=== PATIENT | male | born 1955 | race African-American/Black ===

== ENCOUNTER 2021-12-10 03:20 | Inpatient (IN) | payer SELFPAY ==
[~2021-12-10] VITALS: Ht 182.9 cm; Wt 80.7 kg
--- NOTE | 2021-12-10 03:33 | PHYS DOC ---
Past Medical History Smoking Status: Former Smoker Alcohol Use: Occasionally Drug Use: None General Adult HPI: HPI: Patient is a 66 year old male who is brought in by his for report of progressively worsening right upper quadrant abdominal pain, with occasional nausea and vomiting, symptoms have been progressing for the last few weeks. The pain was initially postprandial but now the pain is constant. The pain does radiate to his right flank, he does describe some pleuritic lower right chest pain. He denies dyspnea. He denies fevers or chills. He reports nausea, no vomiting. He denies constipation or diarrhea. He denies urinary symptoms. No previous similar symptoms. No previous abdominal surgeries. No lower extremity pain or swelling. No cough or hemoptysis. He does not have primary care physician, has not seen a PCP in many years. He does not take any medications routinely. Review of Systems: Review of Systems: Constitutional: Denies fever or chills. [] HENT: Denies nasal congestion or sore throat. [] Respiratory: Denies cough or shortness of breath. [] Cardiovascular: Pleuritic right lower chest pain. Denies chest pressure. De nies peripheral edema. Denies palpitations or syncope GI: Right upper quadrant abdominal pain, nausea. No bowel habit changes. : Denies urinary symptoms Musculoskeletal: Denies back pain or joint pain. [] Integument: Denies rash or itching. Neurologic: Denies headache, focal weakness or sensory changes. [] Psychiatric: Denies depression or anxiety. [] Heart Score: C/O Chest Pain: No Risk Factors: Risk Factors: DM, Current or recent (<one month) smoker, HTN, HLP, family history of CAD, obesity. Risk Scores: Score 0 - 3: 2.5% MACE over next 6 weeks - Discharge Home Score 4 - 6: 20.3% MACE over next 6 weeks - Admit for Clinical Observation Score 7 - 10: 72.7% MACE over next 6 weeks - Early Invasive Strategies Physical Exam: PE: Constitutional: Well developed, well nourished, no acute distress, non-toxic appearance. [] HENT: Normocephalic, atraumatic, mucous membranes are moist Eyes: Conjunctiva normal, no discharge. Sclera anicteric Neck: Normal range of motion, no tenderness, supple, no stridor. No JVD, trachea midline Cardiovascular:Heart rate regular rhythm, +2 radial and +2 posterior tibial pulses bilaterally Lungs & Thorax: Bilateral breath sounds clear to auscultation, no rales, rhonchi or wheezes. Equal chest rise. Mild tachypnea. No retractions. Abdomen: Abdomen is soft, nondistended, exquisite tenderness to palpation in the right upper quadrant, positive Ocampo's. No palpable masses organomegaly. No CVA tenderness. No flank abdominal ecchymoses. No lower abdominal tenderness. Skin: Warm, dry, no erythema, no rash. No jaundice. Back: No tenderness, no CVA tenderness. [] Extremities: No tenderness, no cyanosis, no clubbing, ROM intact, no edema. No calf tenderness. Neurologic: Alert and oriented X 3, normal motor function, normal sensory function, no focal deficits noted. [] Psychologic: Affect normal, judgement normal, mood normal. He is pleasant and cooperative. EKG: EKG: EKG is interpreted at 0354 Rhythm is sinus tachycardia Rate is 107 bpm Finley is left No STEMI Radiology/Procedures: Radiology/Procedures: IMAGING REPORT Signed PATIENT: DEANNE CALLWAAY ACCOUNT: [id number] : 1955 LOCATION: ER AGE: 66 SEX: M EXAM STATUS: PRE ER ORD. PHYSICIAN: OWEN OLIVERA DO REASON: RUQ pain PROCEDURE: ABDOMEN LTD US ABDOMEN LIMITED History: Right upper quadrant pain Comparison: None. Technique: Sonographic examination of the right upper quadrant of the abdomen. Findings: Pancreas: Poorly visualized due to overlying bowel gas. Liver: The liver measures 15.6 cm. Liver echotexture is mildly echogenic compatible steatosis. There is a 1.1 cm focal hyperechoic avascular lesion compatible with hemangioma. Hepatopetal flow in the portal vein. Gallbladder: Wall thickening measuring 7 mm with pericholecystic fluid, echogenic stones and sludge. Positive sonographic Ocampo sign. Bile ducts: The common duct measures 7 mm. Right kidney: 10.4 cm length. No mass or hydronephrosis. Aorta/IVC: Visualized portions are unremarkable. Other: No ascites. Impression: 1. Findings compatible with acute cholecystitis. 2. Common bile duct at the upper limits of normal, 7 mm. No choledocholithiasis visualized. Electronically signed by: Zaheer Epperson MD (12/10/2021 4:22 AM) [facility] DICTATED and SIGNED BY: ZAHEER EPPERSON MD DATE: 12/10/21 0418 IMAGING REPORT Signed PATIENT: DEANNE CALLAWAY ACCOUNT: [id number] : 1955 LOCATION: ER AGE: 66 SEX: M EXAM STATUS: REG ER ORD. PHYSICIAN: OWEN OLIVERA DO REASON: upper abd pain PROCEDURE: PORTABLE CHEST 1V XR CHEST 1V History: Upper abdominal pain. Comparison: None. Technique: AP radiograph of the chest. Findings: The lungs are adequately and symmetrically inflated. No airspace consolidation, pleural effusion or pneumothorax. The cardiomediastinal silhouette and pulmonary vasculature are within normal limits. No acute osseous abnormality. Soft tissues are unremarkable. Impression: 1. No acute cardiopulmonary process. Electronically signed by: Zaheer Epperson MD (12/10/2021 5:24 AM) [facility] DICTATED and SIGNED BY: ZAHEER EPPERSON MD DATE: 12/10/21 0523 IMAGING REPORT Signed PATIENT: DEANNE CALLAWAY ACCOUNT: [id number] : 1955 LOCATION: ER AGE: 66 SEX: M EXAM STATUS: REG ER ORD. PHYSICIAN: OWEN OLIVERA DO REASON: pleuritic chest pain, elevated d dimer, OMNI 350 100 ML IV PROCEDURE: CT ANGIOGRAPHY CHEST CTA CHEST History: Pleuritic chest pain, elevated d-dimer. Rule out PE. Comparison: None. Technique: CTA of the pulmonary arteries with intravenous contrast. 3-D postprocessing was performed. Findings: Pulmonary arteries: No pulmonary embolism. Aorta and great vessels: No aneurysm or dissection of the aortic arch or thoracic aorta. Thyroid: No significant abnormalities. Mediastinum and clarice: No mediastinal masses or adenopathy is seen. Esophagus: The visualized esophagus is normal. Heart: The heart is normal in size. There is no pericardial effusion. Airways, Lungs, Pleura: The airways are patent. There is moderate emphysematous change with a large right apical bleb measuring 8.6 cm diameter. Dependent consolidation in the right greater than left lower lobe. No effusion or pneumothorax. Upper abdomen: Mild stranding adjacent to the gallbladder fossa. Osseous structures and soft tissues: Within normal limits for age. Impression: 1. No pulmonary embolism. 2. Dependent consolidation/atelectasis in the right greater than left lungs. 3. Moderate emphysema with large right apical bleb measuring 8.6 cm diameter. 4. Findings compatible with acute cholecystitis but appreciated by comparison CT. ------ Exposure: One or more of the following individualized dose reduction techniques were utilized for this examination: 1. Automated exposure control 2. Adjustment of the mA and/or kV according to patient size 3. Use of iterative reconstruction technique. Electronically signed by: Zaheer Epperson MD (12/10/2021 5:41 AM) [facility] DICTATED and SIGNED BY: ZAHEER EPPERSON MD DATE: 12/10/21 0534 Course & Med Decision Making: Course & Med Decision Making Pertinent Labs and Imaging studies reviewed. (See chart for details) The patient is given IV fluids, IV morphine. He is kept n.p.o. IV Zosyn given empirically for treatment of cholecystitis. His tachycardia is resolved at this time. D-dimer is markedly elevated, and I suspect his pleuritic pain is related to acute cholecystitis. CT angiogram is ordered nonetheless. I have explained the findings, differential diagnosis and plan of care with him. I recommended hospitalization, he understands and is comfortable with the plan of care. He is accepted for admission by Dr. Helm. Dr. Hernandez also aware of the admission and consult. Shirley Disclaimer: Shirley Disclaimer: This electronic medical record was generated, in whole or in part, using a voice recognition dictation system. Departure Departure Impression: Primary Impression: Acute cholecystitis Disposition: ADMITTED INPATIENT Admitting Physician: TOM (Dr. Helm) Condition: STABLE JAROD,OWEN Cabrera DO Dec 10, 2021 03:33
[2021-12-10] MEDS ORDERED: IV NORMAL SALINE 1000ML BAG 1,000 ML IV ONE (03:45)
[2021-12-10] MEDS ORDERED: MORPHINE SULFATE 4 MG/ML INJ. IVP ONE (03:45)
[2021-12-10 04:06] LABS: BASO # 0.1 x10^3/uL (0.0-0.2); BASO % 0 % (0-3); EOS % 0 % (0-3); HEMATOCRIT 46.3 % (39.0-53.0); HEMOGLOBIN 15.5 g/dL (13.0-17.5); LYMPH # 1.2 x10^3/uL (1.0-4.8); LYMPH % 4 % (24-48); MEAN CORPUSCULAR HEMOGLOBIN 29 pg (25-35); MEAN CORPUSCULAR HGB CONC 33 g/dL (31-37); MEAN CORPUSCULAR VOLUME 87 fL (79-100); MONO # 2.8 x10^3/uL (0.0-1.1); MONO % 9 % (0-9); NEUT # 28.4 x10^3/uL (1.8-7.7); NEUT % 87 % (31-73); PLATELET COUNT 269 x10^3/uL (140-400); RED BLOOD COUNT 5.32 x10^6/uL (4.30-5.70); RED CELL DISTRIBUTION WIDTH 14.5 % (11.5-14.5); WHITE BLOOD COUNT 32.6 x10^3/uL (4.0-11.0)
[2021-12-10 04:15] LABS: CALCIUM 8.9 mg/dL (8.5-10.1); GFR 75.2; POTASSIUM 4.5 mmol/L (3.5-5.1)
[2021-12-10 04:21] LABS: ALBUMIN 3.8 g/dL (3.4-5.0); ALBUMIN/GLOBULIN RATIO 0.8 (1.0-1.7); MAGNESIUM 2.4 mg/dL (1.8-2.4); TOTAL BILIRUBIN 1.3 mg/dL (0.2-1.0); TOTAL PROTEIN 8.5 g/dL (6.4-8.2)
--- NOTE | 2021-12-10 04:24 | RAD ---
US ABDOMEN LIMITED History: Right upper quadrant pain Comparison: None. Technique: Sonographic examination of the right upper quadrant of the abdomen. Findings: Pancreas: Poorly visualized due to overlying bowel gas. Liver: The liver measures 15.6 cm. Liver echotexture is mildly echogenic compatible steatosis. There is a 1.1 cm focal hyperechoic avascular lesion compatible with hemangioma. Hepatopetal flow in the p ortal vein. Gallbladder: Wall thickening measuring 7 mm with pericholecystic fluid, echogenic stones and sludge. Positive sonographic Ocampo sign. Bile ducts: The common duct measures 7 mm. Right kidney: 10.4 cm length. No mass or hydronephrosis. Aorta/IVC: Visualized portions are unremarkable. Other: No ascites. Impression: 1. Findings compatible with acute cholecystitis. 2. Common bile duct at the upper limits of normal, 7 mm. No choledocholithiasis visualized. Electronically signed by: Zaheer Thakkar MD (12/10/2021 4:22 AM) [facility]
[2021-12-10] MEDS ORDERED: IOHEXOL 350 MG/ML 100 ML VIAL. IV ONE (04:45)
[2021-12-10] MEDS ORDERED: PIPERACILLIN/TAZOBACTAM 3.375 GM in IV NORMAL SALINE 50ML 50 ML IV ONE (04:45)
[2021-12-10] MEDS ORDERED: CONTRAST GIVEN. MC PRN (04:45)
[2021-12-10 05:01] LABS: % BANDS 6 % (0-9); % LYMPHS 7 % (24-48); % MONOS 8 % (0-10); % SEGS 79 % (35-66); PLT ESTIMATE ADEQUATE (ADEQUATE); TOXIC VACUOLATION SLIGHT
--- NOTE | 2021-12-10 05:26 | RAD ---
XR CHEST 1V History: Upper abdominal pain. Comparison: None. Technique: AP radiograph of the chest. Findings: The lungs are adequately and symmetrically inflated. No airspace consolidation, pleural effusion or p neumothorax. The cardiomediastinal silhouette and pulmonary vasculature are within normal limits. No acute osseous abnormality. Soft tissues are unremarkable. Impression: 1. No acute cardiopulmonary process. Electronically signed by: Zaheer Thakkar MD (12/10/2021 5:24 AM) [facility]
--- NOTE | 2021-12-10 05:43 | RAD ---
CTA CHEST History: Pleuritic chest pain, elevated d-dimer. Rule out PE. Comparison: None. Technique: CTA of the pulmonary arteries with intravenous contrast. 3-D postprocessing was performed. Findings: Pulmonary arteries: No pulmonary embolism. Aorta and great vessels: No aneurysm or dissection of the aortic arch or thoracic aorta. Thyroid: No significant abnormalities. Mediastinum and clarice: No mediastinal masses or adenopathy is seen. Esophagus: The visualized esophagus is normal. Heart: The heart is normal in size. There is no pericardial effusion. Airways, Lungs, Pleura: The airways are patent. There is moderate emphysematous change with a large r ight apical bleb measuring 8.6 cm diameter. Dependent consolidation in the right greater than left lo wer lobe. No effusion or pneumothorax. Upper abdomen: Mild stranding adjacent to the gallbladder fossa. Osseous structures and soft tissues: Within normal limits for age. Impression: 1. No pulmonary embolism. 2. Dependent consolidation/atelectasis in the right greater than left lungs. 3. Moderate emphysema with large right apical bleb measuring 8.6 cm diameter. 4. Findings compatible with acute cholecystitis but appreciated by comparison CT. ------ Exposure: One or more of the following individualized dose reduction techniques were utilized for thi s examination: 1. Automated exposure control 2. Adjustment of the mA and/or kV according to patient size 3. Use of iterative reconstruction technique. Electronically signed by: Zaheer Thakkar MD (12/10/2021 5:41 AM) [facility]
[2021-12-10] MEDS ORDERED: IV DEXTROSE 5 %-0.45 % NACL 1,000 ML IV ONE (06:00)
[2021-12-10] MEDS ORDERED: ONDANSETRON PF 4 MG/2 ML VIAL. IVP PRN (06:00)
--- NOTE | 2021-12-10 07:19 | EKG ---
[facility] [address] [place] [address] Test Date: 2021-12-10 Test Time: 03:52:03 Pat Name: DEANNE CALLAWAY Department: Room: ED HOLD 18 Gender: M Marketing Regional Consultant: [id number] : 1955 Requested By: OWEN OLIVERA Order Number: [id number] Reading MD: Siva Lovell MD Measurements Intervals [place] Rate: 107 P: 28 AL: 162 QRS: -31 QRSD: 90 T: 25 QT: 324 QTc: 432 Interpretive Statements SINUS TACHYCARDIA NON-SPECIFIC ST/T CHANGES Electronically Signed On 12-18-2021 7:36:58 CDT by Siva Lovell MD
[2021-12-10 07:30] VITALS: BP 141/84
[2021-12-10] MEDS ORDERED: NAPR220T70 PO (07:41)
[2021-12-10] MEDS: MORPHINE SULFATE 4 MG/ML INJ. IV PRN ×2 (07:48→19:34)
--- NOTE | 2021-12-10 08:00 | NUR ---
resting in bed. he is complaining of pain of pain 10/. admission history completed.
--- NOTE | 2021-12-10 08:55 | PDOC2 ---
JAELYN BEATTY HUMAN RESOURCES PROJECT COORDINATOR 12/10/21 0855: CONSULT Date of Consult Date of Consult DATE: 12/10/21 TIME: 08:51 Reason for Consult Reason for Consult: cholecystitis Referring Physician Referring Physician: ER Identification/Chief Complaint Chief Complaint abdominal pain Source Source: Chart review, Patient History of Present Illness Reason for Visit: Admitted with RUQ pain, radiation to back. Aggravated with eating. Started on friday. No similar symptoms in past. Past Medical History Past Medical History denies Past Surgical History Past Surgical History: No pertinent history Family History Family History: Other (noncontributory to current illness ) Social History Quit ALCOHOL: none Drugs: None Current Medications Current Medications Current Medications Sodium Chloride 1,000 ml @ 1,000 mls/hr 1X ONCE IV Last administered on 11/21 10/13at 04:05; Start 12/10/21 at 03:45; Stop 12/10/21 at 04:44; Status DC Morphine Sulfate (Morphine Sulfate) 4 mg 1X ONCE IVP Last administered on 12/10/21at 03:45; Start 12/10/21 at 03:45; Stop 12/10/21 at 03:46; Status DC Piperacillin Sod/ Tazobactam Sod 3.375 gm/Sodium Chloride 50 ml @ 100 mls/hr 1X ONCE IV Last administered on 12/10/21at 04:48; Start 12/10/21 at 04:45; Stop 12/10/21 at 05:14; Status DC Iohexol (Omnipaque 350 Mg/ml) 100 ml 1X ONCE IV Last administered on 12/10/21at 05:22; Start 12/10/21 at 04:45; Stop 12/10/21 at 04:46; Status DC Info (CONTRAST GIVEN -- Rx MONITORING) 1 each PRN DAILY PRN MC SEE COMMENTS; Start 12/10/21 at 04:45; Stop 12/12/21 at 04:44 Ondansetron HCl (Zofran) 4 mg PRN Q8HRS PRN IVP NAUSEA/VOMITING; Start 12/10/21 at 06:00; Stop 12/11/21 at 05:59 Morphine Sulfate (Morphine Sulfate) 4 mg PRN Q2HR PRN IV PAIN Last administered on 12/10/21at 07:48; Start 12/10/21 at 06:00 Piperacillin Sod/ Tazobactam Sod 3.375 gm/Sodium Chloride 50 ml @ 100 mls/hr Q6HRS IV ; Start 12/10/21 at 12:00 Dextrose/Sodium Chloride 1,000 ml @ 75 mls/hr 1X ONCE IV Last administered on 12/10/21at 06:00; Start 12/10/21 at 06:00; Stop 12/10/21 at 19:19 Active Scripts Active Reported Aleve (Naproxen Sodium) 220 Mg Tablet 440 Mg PO DAILY Allergies Allergies: Coded Allergies: No Known Drug Allergies (Unverified , 12/10/21) ROS General: No: Chills, Other (fevers ) PSYCHOLOGICAL ROS: No: Anxiety, Depression Eyes: No Blurry vision, No Double vision HEENT: No: Heacaches, Sore Throat Hematological and Lymphatic: No: Bleeding Problems, Blood Clots Respiratory: No: Cough, SOB with excertion Cardiovascular: No Chest Pain, No Palpitations Gastrointestinal: Yes Other (see hpi) Genitourinary: No Dysuria, No Retention Musculoskeletal: No Joint Pain, No Muscle Pain Neurological: No Impaired Coord/balance, No Numbness/Tingling Skin: No Pruritus, No Rash Physical Exam General: Alert, Oriented X3, Cooperative HEENT: Atraumatic, PERRLA Lungs: Clear to auscultation, Normal air movement Heart: Regular rate, Normal S1, Normal S2 Abdomen: Soft, Other (ND, RUQ TTP) Extremities: No clubbing, No cyanosis Skin: No rashes, No breakdown Neuro: Normal gait, Normal speech Psych/Mental Status: Mental status NL, Mood NL MUSCULOSKELETAL: No deformity, No swelling Vitals VITALS Vital Signs Date Time Temp Pulse Resp B/P (MAP) Pulse Ox O2 Delivery O2 Flow Rate FiO2 12/10/21 07:48 18 Room Air 12/10/21 07:30 98.3 90 141/84 (103) 96 98.3 Labs Labs Laboratory Tests Test 12/10/21 03:55 12/10/21 04:50 White Blood Count 32.6 x10^3/uL (4.0-11.0) Red Blood Count 5.32 x10^6/uL (4.30-5.70) Hemoglobin 15.5 g/dL (13.0-17.5) Hematocrit 46.3 % (39.0-53.0) Mean Corpuscular Volume 87 fL (79-100) Mean Corpuscular Hemoglobin 29 pg (25-35) Mean Corpuscular Hemoglobin Concent 33 g/dL (31-37) Red Cell Distribution Width 14.5 % (11.5-14.5) Platelet Count 269 x10^3/uL (140-400) Neutrophils (%) (Auto) 87 % (31-73) Lymphocytes (%) (Auto) 4 % (24-48) Monocytes (%) (Auto) 9 % (0-9) Eosinophils (%) (Auto) 0 % (0-3) Basophils (%) (Auto) 0 % (0-3) Neutrophils # (Auto) 28.4 x10^3/uL (1.8-7.7) Lymphocytes # (Auto) 1.2 x10^3/uL (1.0-4.8) Monocytes # (Auto) 2.8 x10^3/uL (0.0-1.1) Eosinophils # (Auto) 0.0 x10^3/uL (0.0-0.7) Basophils # (Auto) 0.1 x10^3/uL (0.0-0.2) Segmented Neutrophils % 79 % (35-66) Band Neutrophils % 6 % (0-9) Lymphocytes % 7 % (24-48) Monocytes % 8 % (0-10) Toxic Vacuolation Slight Platelet Estimate Adequate (ADEQUATE) D-Dimer (Cyndi) 3.53 ug/mlFEU (0.00-0.50) Sodium Level 133 mmol/L (136-145) Potassium Level 4.5 mmol/L (3.5-5.1) Chloride Level 97 mmol/L (98-107) Carbon Dioxide Level 29 mmol/L (21-32) Anion Gap 7 (6-14) Blood Urea Nitrogen 14 mg/dL (8-26) Creatinine 1.0 mg/dL (0.7-1.3) Estimated GFR (Cockcroft-Gault) 75.2 BUN/Creatinine Ratio 14 (6-20) Glucose Level 133 mg/dL (70-99) Calcium Level 8.9 mg/dL (8.5-10.1) Magnesium Level 2.4 mg/dL (1.8-2.4) Total Bilirubin 1.3 mg/dL (0.2-1.0) Aspartate Amino Transf (AST/SGOT) 28 U/L (15-37) Alanine Aminotransferase (ALT/SGPT) 38 U/L (16-63) Alkaline Phosphatase 64 U/L (46-116) Troponin I High Sensitivity 5 ng/L (4-75) NX-Rki-I-Type Natriuretic Peptide 136 pg/mL (0-124) Total Protein 8.5 g/dL (6.4-8.2) Albumin 3.8 g/dL (3.4-5.0) Albumin/Globulin Ratio 0.8 (1.0-1.7) Lipase 32 U/L (73-393) SARS-CoV-2 Antigen (Rapid) Negative (NEGATIVE) Laboratory Tests Test 12/10/21 03:55 12/10/21 04:50 White Blood Count 32.6 x10^3/uL (4.0-11.0) Red Blood Count 5.32 x10^6/uL (4.30-5.70) Hemoglobin 15.5 g/dL (13.0-17.5) Hematocrit 46.3 % (39.0-53.0) Mean Corpuscular Volume 87 fL (79-100) Mean Corpuscular Hemoglobin 29 pg (25-35) Mean Corpuscular Hemoglobin Concent 33 g/dL (31-37) Red Cell Distribution Width 14.5 % (11.5-14.5) Platelet Count 269 x10^3/uL (140-400) Neutrophils (%) (Auto) 87 % (31-73) Lymphocytes (%) (Auto) 4 % (24-48) Monocytes (%) (Auto) 9 % (0-9) Eosinophils (%) (Auto) 0 % (0-3) Basophils (%) (Auto) 0 % (0-3) Neutrophils # (Auto) 28.4 x10^3/uL (1.8-7.7) Lymphocytes # (Auto) 1.2 x10^3/uL (1.0-4.8) Monocytes # (Auto) 2.8 x10^3/uL (0.0-1.1) Eosinophils # (Auto) 0.0 x10^3/uL (0.0-0.7) Basophils # (Auto) 0.1 x10^3/uL (0.0-0.2) Segmented Neutrophils % 79 % (35-66) Band Neutrophils % 6 % (0-9) Lymphocytes % 7 % (24-48) Monocytes % 8 % (0-10) Toxic Vacuolation Slight Platelet Estimate Adequate (ADEQUATE) D-Dimer (Cyndi) 3.53 ug/mlFEU (0.00-0.50) Sodium Level 133 mmol/L (136-145) Potassium Level 4.5 mmol/L (3.5-5.1) Chloride Level 97 mmol/L (98-107) Carbon Dioxide Level 29 mmol/L (21-32) Anion Gap 7 (6-14) Blood Urea Nitrogen 14 mg/dL (8-26) Creatinine 1.0 mg/dL (0.7-1.3) Estimated GFR (Cockcroft-Gault) 75.2 BUN/Creatinine Ratio 14 (6-20) Glucose Level 133 mg/dL (70-99) Calcium Level 8.9 mg/dL (8.5-10.1) Magnesium Level 2.4 mg/dL (1.8-2.4) Total Bilirubin 1.3 mg/dL (0.2-1.0) Aspartate Amino Transf (AST/SGOT) 28 U/L (15-37) Alanine Aminotransferase (ALT/SGPT) 38 U/L (16-63) Alkaline Phosphatase 64 U/L (46-116) Troponin I High Sensitivity 5 ng/L (4-75) VR-Dwe-D-Type Natriuretic Peptide 136 pg/mL (0-124) Total Protein 8.5 g/dL (6.4-8.2) Albumin 3.8 g/dL (3.4-5.0) Albumin/Globulin Ratio 0.8 (1.0-1.7) Lipase 32 U/L (73-393) SARS-CoV-2 Antigen (Rapid) Negative (NEGATIVE) Assessment/Plan Assessment/Plan abdominal pain imaging concerning for acute cholecystitis D dimer elevated, CT negative for a PE, noted emphysematous changes WBC [address] Johnson tentatively plan wilber singh, pending scheduling MAGGY JOHNSON MD 12/10/21 1046: CONSULT Assessment/Plan Assessment/Plan Patient seen and examined by me currently resting comfortably in bed although does describe right upper quadrant abdominal pain he is tender in the right upper quadrant imaging reviewed consistent with a cholecystitis plan for laparoscopic cholecystectomy tomorrow. Agree with Sofia's assessment plan JAELYN BEATTY APRN Dec 10, 2021 08:55 MAGGY JOHNSON MD Dec 10, 2021 10:46
[2021-12-10 11:01] VITALS: BP 108/75
--- NOTE | 2021-12-10 11:38 | HP ---
DATE OF SERVICE: 12/10/2021 ADMIT DATE: 12/10/2021 CHIEF COMPLAINT: Abdominal pain. HISTORY OF PRESENT ILLNESS: The patient is a pleasant 66-year-old male who presented to the ER with abdominal pains in the right upper quadrant. He has got some associated nausea and vomiting. We did some imaging. He has got gallstones and his lab is also showing leukocytosis of 32,000. We are going to admit the patient with presumed diagnosis of cholecystitis. We have consulted General Surgery. The patient may be going to surgery. PAST MEDICAL HISTORY: Arthritis. ALLERGIES: None. FAMILY HISTORY: Hypertension. SOCIAL HISTORY: He does not drink, smoke or take drugs. 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 MEDICATIONS: Reviewed. He is only on Aleve. REVIEW OF SYSTEMS: GENERAL: No history of weight change, weakness or fevers. SKIN: No bruising, hair changes or rashes. EYES: No blurred, double or loss of vision. NOSE AND THROAT: No history of nosebleeds, hoarseness or sore throat. HEART: No history of palpitations, chest pain or shortness of breath on exertion. LUNGS: Denies cough, hemoptysis, wheezing or shortness of breath. GASTROINTESTINAL: He complains of abdominal pain. GENITOURINARY: No history of frequency, urgency, hesitancy or nocturia. NEUROLOGIC: Denies history of numbness, tingling, tremor or weakness. PSYCHIATRIC: No history of panic, anxiety or depression. ENDOCRINE: No history of heat or cold intolerance, polyuria or polydipsia. EXTREMITIES: Denies muscle weakness, joint pain, pain on walking or stiffness. PHYSICAL EXAMINATION: VITALS: Within normal limits and are stable. GENERAL: No apparent distress. Alert and oriented. HEENT: Normal cephalic atraumatic, external auditory canals are patent EYES: Extraocular muscles are intact, pupils are equally round and reactive to light and accommodation MUSKULOSKELETAL: Well developed, well nourished, good range of motion ENDOCRINE: No thyromegaly was palpated LYMPHATICS: No cervical chain or axillary nodes were noted HEMATOPOIETIC: No bruising NECK: Supple, no JVD, no thyromegaly was noted. LUNGS: Clear to auscultation in all lung bello without rhonchi or wheezing. HEART: RRR, S1, S2 present. Peripheral pulses intact, no obvious murmurs were noted. ABDOMEN: He has got right upper quadrant pain and decreased bowel sounds. EXTREMITIES: Without any cyanosis, clubbing, or edema. Pedal pulses intact, Homans sign is negative. NEUROLOGIC: Normal speech, normal tone. A and O x 3, moves all extremities, no obvious focal deficits. PSYCHIATRIC: Normal affect, normal mood. Stable. SKIN: No ulcerations or rashes, good skin turgor, no jaundice. VASCULAR: Good capillary refill, neurovascular bundle appears to be intact. Sodium is low at 133. White count is high at 33,000. D-dimer is high at 3.53. COVID testing is negative. Abdominal ultrasound shows cholecystitis. CT of the chest is negative for pulmonary emboli, but does show some emphysema. Chest x-ray negative. ASSESSMENT AND PLAN: Symptomatic gallstones with cholecystitis. The patient has been admitted. We are consulting General Surgery, they have seen him, they are thinking about taking him to surgery. For now, we will have him on IV Zosyn, home meds, IV fluids. Deep venous thrombosis prophylaxis. Full code. MIKE/MINDY DR: Jennifer TID: [id number]
[2021-12-10] MEDS: PIPERACILLIN/TAZOBACTAM 3.375 GM in IV NORMAL SALINE 50ML 50 ML IV SCH ×2 (11:58→17:55)
[2021-12-10 15:15] VITALS: BP 142/83
[2021-12-10 19:00] VITALS: BP 134/86
[2021-12-10 23:00] VITALS: BP 119/61
[2021-12-11] VITALS (10 sets, daily range): BP systolic 109–143; BP diastolic 61–89
[2021-12-11] MEDS: PIPERACILLIN/TAZOBACTAM 3.375 GM in IV NORMAL SALINE 50ML 50 ML IV SCH ×5 (00:09→23:49)
[2021-12-11] MEDS ORDERED: PROCHLORPERAZINE 10 MG/2 ML VIAL. IVP PRN (06:00)
[2021-12-11] MEDS ORDERED: IV RINGERS,LACTATED 1000ML 1,000 ML IV SCH (06:00)
[2021-12-11] MEDS ORDERED: fentaNYL PF VIAL 100 MCG/2 ML VIAL IVP PRN ×2 (06:00)
[2021-12-11] MEDS ORDERED: MORPHINE SULFATE 2 MG/ML INJ. IVP PRN (06:00)
[2021-12-11] MEDS ORDERED: HYDROmorphone 2 MG/ML INJ. IVP PRN (06:00)
[2021-12-11] MEDS: MORPHINE SULFATE 4 MG/ML INJ. IV PRN (07:13)
--- NOTE | 2021-12-11 11:03 | NUR ---
SW following. Discussed with RN, pt from home with family, 2L, NPO, rapid COVID-19 negative. Surgery following. Med Assist following for self pay status. SW will continue to follow.
--- NOTE | 2021-12-11 11:43 | NUR ---
transferred to surgery
[2021-12-11] MEDS ORDERED: BUPIVACAINE-EPI 0.25%-1:200000 MPF 30 ML VIAL. ONE (11:49)
[2021-12-11] MEDS ORDERED: PROPOFOL 10 MG/ML (20ML) VIAL. IV ONE ×2 (12:01→13:36)
[2021-12-11] MEDS ORDERED: ONDANSETRON PF 4 MG/2 ML VIAL. ONE (12:01)
[2021-12-11] MEDS ORDERED: DEXAMETHASONE SOD PHOS 4 MG/ML VIAL ONE (12:01)
[2021-12-11] MEDS ORDERED: NEOSTIGMINE METHYLSULFATE 5 MG/5 ML SYRINGE. ONE (12:01)
[2021-12-11] MEDS ORDERED: fentaNYL PF VIAL 100 MCG/2 ML VIAL ONE (12:01)
[2021-12-11] MEDS ORDERED: GLYCOPYRROLATE 1 MG/5 ML VIAL. ONE (12:01)
[2021-12-11] MEDS ORDERED: LIDOCAINE 2% PF 5 ML VIAL. ONE (12:01)
[2021-12-11] MEDS ORDERED: ROCURONIUM 50 MG/5 ML VIAL. ONE (12:01)
[2021-12-11] MEDS ORDERED: MIDAZOLAM HCL/PF 2 MG/2 ML VIAL. ONE (12:02)
[2021-12-11] MEDS ORDERED: PHENYLEPHRINE in 0.9% NACL PF 1 MG/10 ML SYRINGE. IV ONE (12:46)
[2021-12-11] MEDS ORDERED: SURGICEL HEMOSTAT 4X8 EACH. ONE (13:06)
--- NOTE | 2021-12-11 13:20 | PDOC ---
[facility] PROGRESS NOTE Date of Service DOS: DATE: 12/11/21 TIME: 13:19 Chief Complaint Chief Complaint Symptomatic gallstones acute cholecystitis. History of Present Illness History of Present Illness General Surgery following, Lap singh by Dr. Hernandez scheduled for today Vitals/I&O Vitals/I&O: Vital Signs Date Time Temp Pulse Resp B/P (MAP) Pulse Ox O2 Delivery O2 Flow Rate FiO2 12/11/21 11:56 98.7 107 15 126/78 95 Nasal Cannula 2.0 98.7 I & O 12/10/21 12/10/21 12/11/21 15:00 23:00 07:00 Intake Total 0 ml 0 ml 0 ml Output Total 500 ml 150 ml 200 ml Balance -500 ml -150 ml -200 ml Physical Exam General: Alert, Oriented X3, Cooperative Heart: Regular rate, Normal S1, Normal S2 Lungs: Clear Abdomen: Soft, Other (ND, RUQ TTP) Extremities: No clubbing, No cyanosis Skin: No rashes, No breakdown Comment Review of Relevant I have reviewed the following items talha (where applicable) has been applied. Medications: Current Medications Medications (Trade) Dose Ordered Sig/Collins Route PRN Reason Start Time Stop Time Status Last Admin Dose Admin Ringer's Solution 1,000 ml @ 30 mls/hr Q24H IV 12/11/21 06:00 12/11/21 17:59 12/10/21 19:34 Bupivacaine HCl/ Epinephrine Bitart (Sensorcaine-Epi 0.25%-1:175020 Mpf) 30 ml STK-MED ONCE .ROUTE 12/11/21 11:49 12/11/21 11:49 DC 12/11/21 12:59 Justifications for Admission Other Justification ALLISON SUAREZ MD Dec 11, 2021 13:20
--- NOTE | 2021-12-11 13:36 | PDOC4 ---
Operative Note Operative Note Date: December 112021 at 1:32 PM Preoperative diagnosis: Acute cholecystitis Postoperative diagnosis: Same Procedure: Laparoscopic cholecystectomy with fluorescein cholangiography Surgeon: David Specimen: Gallbladder Dictation: Patient is a 66-year-old male was admitted to the hospital with right upper quadrant abdominal pain ultrasound showing thickened gallbladder wall consistent with acute cholecystitis. Procedure laparoscopic cholecystectomy was explained to the patient detail risk benefits were also discussed including bleeding infection injury to intra-abdominal contents possible necessitating further open operations alternatives to this procedure also discussed with the patient who seemed to understand and gave a verbal and written consent to have procedure performed. Patient was to the operating room placed in the supine position general anesthesia was initiated once patient was sleeping intubated his abdomen was prepped and draped usual sterile fashion using ChloraPrep. Area just below the umbilicus was injected with quarter percent Marcaine with epinephrine incision was made 11 blade scalpel and a varies needle was placed within the abdomen creating pneumoperitoneum once this was complete the millimeter port was placed in a 5 mm camera was placed within the abdomen was noted there and then abdomen there was quite a bit of inflammation in the right upper quadrant with adherent omentum to the gallbladder and some zuleyka pus within the gallbladder area. 5 mm port was placed in the left upper quadrant and using a grasper the adhesions to the anterior abdominal wall the omentum were swept off with blunt dissection a 5 mm port was then placed in the epigastrium 5 mm ports placed right midabdomen a 5 mm port was placed in the right lateral abdomen all under direct visualization. The gallbladder was suctioned of its contents with a needle aspirator and the dome of the gallbladder is grasped directed cephalad it was noted that the dome of the ga llbladder was somewhat necrotic the infundibulum the gallbladder is grasped retracted laterally the adherent tissues of the triangle were taken down with blunt dissection exposing the cystic duct fluorescing cholangiography was performed showed that the cystic duct was occluded but there was dye with within the common bile duct. The duct was doubly clipped and transected the cystic artery was clipped and transected there was some bleeding this was controlled with Surgicel and pressure. The gallbladder was taken off the liver with hook electrocautery placed in Endo Catch bag moving the umbilicus right upper quadrant is irrigated and suctioned dry the gallbladder fossa was somewhat oozy. A 19 [place] MARION drain was placed through the lateral 5 mm port placed in the gallbladder fossa area and Arixtra was then placed within the gallbladder fossa bleeding appear to be controlled with Won. The pneumoperitoneum was reduced all ports were removed the fascial defect at the umbilicus was closed with a [id number] 0 Vicryl suture and skin was reapproximated all port sites for subicular Monocryl Mastisol Steri-Strips and island dressings were applied. Patient was awakened extubated in the operating room taken to recovery in stable condition all sponge instrument needle counts listed as correct estimated blood loss 30 cc MAGGY JOHNSON MD Dec 11, 2021 13:36
[2021-12-11] MEDS ORDERED: oxyCODONE/APAP 5/325 1 TAB TABLET PO PRN (13:45)
[2021-12-12 03:00] VITALS: BP 129/74
[2021-12-12] MEDS: PIPERACILLIN/TAZOBACTAM 3.375 GM in IV NORMAL SALINE 50ML 50 ML IV SCH ×4 (06:21→23:46)
[2021-12-12] MEDS: oxyCODONE/APAP 5/325 1 TAB TABLET PO PRN ×2 (06:37→18:24)
[2021-12-12 07:20] VITALS: BP 102/63
--- NOTE | 2021-12-12 09:06 | PDOC ---
JAELYN BEATTY APRN 12/12/21 0906: SURGICAL PROGRESS NOTE DATE: 12/12/21 TIME: 09:04 Subjective overall feels much better tolerating diet no nausea Vital Signs Vital Signs Date Time Temp Pulse Resp B/P (MAP) Pulse Ox O2 Delivery O2 Flow Rate FiO2 12/12/21 07:20 97.9 79 20 102/63 (76) 97 Room Air 97.9 12/11/21 20:00 2.0 I&O Intake and Output 12/12/21 07:00 Intake Total 1560 ml Output Total 1445 ml Balance 115 ml Intake Oral 760 ml IV Total 800 ml Output Urine Total 1325 ml Drainage Total 70 ml Estimated Blood Loss 50 ml General: Alert, Oriented X3, Cooperative Abdomen: Soft, Other (lisandro serosang) Problem List s/p singh necrotic GB would continue IV abx today, lab in AM--tentatively plan home tomorrow with oral abx and drain Justicifation of Admission Dx: Justifications for Admission: Justification of Admission Dx: Yes Comments: cholecystitis MAGGY JOHNSON MD 12/12/21 0958: SURGICAL PROGRESS NOTE Assessment/Plan Agree with Sofia's assessment and plan JAELYN BEATTY APRN Dec 12, 2021 09:06 MAGGY JOHNSON MD Dec 12, 2021 09:58
[2021-12-12 10:55] VITALS: BP 102/63
[2021-12-12] MEDS ORDERED: IV NORMAL SALINE 1000ML BAG 1,000 ML IV ONE (11:15)
--- NOTE | 2021-12-12 13:08 | PDOC ---
[facility] PROGRESS NOTE Date of Service DOS: DATE: 12/12/21 TIME: 13:07 Chief Complaint Chief Complaint Symptomatic gallstones acute cholecystitis. sepsis POA History of Present Illness History of Present Illness necrotic singh reported by surg consult, cont IV abx labs in AM General Surgery following, Lap singh by Dr. Hernandez yesterday pain better, eating OK Vitals/I&O Vitals/I&O: Vital Signs Date Time Temp Pulse Resp B/P (MAP) Pulse Ox O2 Delivery O2 Flow Rate FiO2 12/12/21 10:55 98.3 75 18 102/63 (76) 96 Room Air 98.3 12/11/21 20:00 2.0 I & O 12/11/21 12/11/21 12/12/21 15:00 23:00 07:00 Intake Total 920 ml 640 ml Output Total 70 ml 615 ml 760 ml Balance 850 ml -615 ml -120 ml Physical Exam General: Alert, Oriented X3, Cooperative Heart: Regular rate, Normal S1, Normal S2 Lungs: Clear Abdomen: Soft, Other (lisandro serosang) Extremities: No clubbing, No cyanosis Skin: No rashes, No breakdown Review of Systems Review of Systems: complains of large cyst on left trapezius area, would as Dr. Hernandez to take a look, may be able to remove Comment Review of Relevant I have reviewed the following items talha (where applicable) has been applied. Medications: Current Medications Medications (Trade) Dose Ordered Sig/Collins Route PRN Reason Start Time Stop Time Status Last Admin Dose Admin Oxycodone/ Acetaminophen (Percocet 5/325) 2 tab PRN Q4HRS PRN PO SEVERE PAIN 12/11/21 13:45 12/12/21 06:37 Sodium Chloride 1,000 ml @ 100 mls/hr 1X ONCE IV 12/12/21 11:15 12/12/21 21:14 12/12/21 11:23 Justifications for Admission Other Justification ALLISON SUAREZ MD Dec 12, 2021 13:08
--- NOTE | 2021-12-12 14:08 | PATHOLOGY ---
[facility] Accession Number: [id number] . 01 Material submitted: . gallbladder - GALLBLADDER . 01 Clinical history: . ACUTE CHOLECYSTITIS L/S CHOLECYSTECTOMY CHOLECYSTITIS . 02 Diagnosis: Gallbladder, laparoscopic cholecystectomy: - Acute necrotizing (gangrenous) cholecystitis. (MARIONM:sudhir; 12/12/2021) [facility] 12/12/2021 1142 Local . 02 Comment: There are no calculi present within the gallbladder lumen or specimen container. There is no evidence of malignancy. (MARIONM:sudhir; 12/12/2021) . 02 Electronically signed: . Nithin Wilcox MD, Pathologist NPI- [id number] . 01 Gross description: . Fixative: Formalin Labeled: Gallbladder Specimen received: Previously disrupted gallbladder Dimensions: 9.5 x 4.9 x 1.6 cm Serosa: Light rashid-pink to dark rashid-red, with light rashid-yellow, shaggy and cauterized adventitia Lymph node: None identified Mucosa: Bright red to dark rashid-hernández and dusky Average wall thickness: 0.7 Calculi: None identified Abnormalities: None identified . A1- [employer] body, fundus, and the cystic duct margin. ([facility]; 12/11/2021) [facility] 12/11/2021 1711 Local . 02 Pathologist provided ICD-10: K81.0 . 02 CPT . 639813 Specimen Comment: A courtesy copy of this report has been sent to [phone], [phone] Specimen Comment: [id number] Specimen Comment: Report sent to / DR GALLOWAY Specimen Comment: A duplicate report has been generated due to demographic updates. Performed at: [address] [place] [address] [address], [place], [place] [id number] MD Kalen Frye MD Phone: [phone] Performed at: [address] [id number] MD Nithin Wilcox MD Phone: [phone]
[2021-12-12 15:01] VITALS: BP 104/62
[2021-12-12 19:00] VITALS: BP 125/65
[2021-12-12] MEDS: LACTOBACILLUS RHAMNOSUS GG 1 CAPSULE. PO SCH (20:20)
[2021-12-12 23:26] VITALS: BP 116/55
[2021-12-13 02:58] VITALS: BP 111/57
[2021-12-13 04:07] LABS: AMORPHOUS SEDIMENT,UR PRESENT /HPF; BACTERIA,URINE 0 /HPF (0-FEW); RBC,URINE RARE /HPF (0-2)
[2021-12-13] MEDS: PIPERACILLIN/TAZOBACTAM 3.375 GM in IV NORMAL SALINE 50ML 50 ML IV SCH ×2 (04:27→12:12)
[2021-12-13 05:30] LABS: BASO # 0.1 x10^3/uL (0.0-0.2); BASO % 1 % (0-3); EOS # 0.2 x10^3/uL (0.0-0.7); EOS % 1 % (0-3); HEMATOCRIT 40.3 % (39.0-53.0); HEMOGLOBIN 12.9 g/dL (13.0-17.5); LYMPH # 2.3 x10^3/uL (1.0-4.8); LYMPH % 18 % (24-48); MEAN CORPUSCULAR HEMOGLOBIN 28 pg (25-35); MEAN CORPUSCULAR HGB CONC 32 g/dL (31-37); MEAN CORPUSCULAR VOLUME 89 fL (79-100); MONO # 1.3 x10^3/uL (0.0-1.1); MONO % 10 % (0-9); NEUT # 9.1 x10^3/uL (1.8-7.7); NEUT % 70 % (31-73); PLATELET COUNT 310 x10^3/uL (140-400); RED BLOOD COUNT 4.53 x10^6/uL (4.30-5.70); RED CELL DISTRIBUTION WIDTH 14.5 % (11.5-14.5); WHITE BLOOD COUNT 12.9 x10^3/uL (4.0-11.0)
[2021-12-13 05:39] LABS: ALBUMIN 2.4 g/dL (3.4-5.0); ALBUMIN/GLOBULIN RATIO 0.5 (1.0-1.7); CALCIUM 8.2 mg/dL (8.5-10.1); POTASSIUM 3.4 mmol/L (3.5-5.1); TOTAL BILIRUBIN 0.3 mg/dL (0.2-1.0); TOTAL PROTEIN 6.9 g/dL (6.4-8.2)
[2021-12-13 07:00] VITALS: BP 111/66
[2021-12-13] MEDS: oxyCODONE/APAP 5/325 1 TAB TABLET PO PRN (08:22)
[2021-12-13] MEDS: LACTOBACILLUS RHAMNOSUS GG 1 CAPSULE. PO SCH (08:22)
--- NOTE | 2021-12-13 08:54 | PDOC ---
SURGICAL PROGRESS NOTE DATE: 12/13/21 TIME: 08:52 Subjective tolerating diet minimal pain Vital Signs Vital Signs Date Time Temp Pulse Resp B/P (MAP) Pulse Ox O2 Delivery O2 Flow Rate FiO2 12/13/21 08:22 Room Air 12/13/21 07:00 98.6 69 20 111/66 (81) 91 98.6 I&O Intake and Output 12/13/21 07:00 Intake Total 1800 ml Output Total 1915 ml Balance -115 ml Intake Oral 1300 ml Blood Product 500 ml Output Urine Total 1850 ml Drainage Total 65 ml General: Alert, Oriented X3 HEENT: Atraumatic Abdomen: Soft, Other (ND, lisandro serosang) Labs Laboratory Tests Test 12/13/21 03:30 12/13/21 04:30 Urine Collection Type Unknown Urine Color (Auto) Light yellow Urine Turbidity Clear Urine pH (Auto) 6.0 (<5.0-8.0) Urine Specific [place] 1.019 (1.000-1.030) Urine Protein (Auto) Negative mg/dL (Negative) Urine Glucose (Auto)(UA) Negative mg/dL (Negative) Urine Ketones (Auto) Negative mg/dL (Negative) Urine Blood (Auto) Negative (Negative) Urine Nitrite Negative (Negative) Urine Bilirubin (Auto) Negative (Negative) Urine Urobilinogen (Auto) Normal mg/dL (Normal) Urine Leukocyte Esterase (Auto) Negative (Negative) Urine RBC Rare /HPF (0-2) Urine WBC 1-4 /HPF (0-4) Urine Squamous Epithelial Cells Few /LPF Urine Amorphous Sediment Present /HPF Urine Bacteria 0 /HPF (0-FEW) Urine Mucus Slight /LPF White Blood Count 12.9 x10^3/uL (4.0-11.0) Red Blood Count 4.53 x10^6/uL (4.30-5.70) Hemoglobin 12.9 g/dL (13.0-17.5) Hematocrit 40.3 % (39.0-53.0) Mean Corpuscular Volume 89 fL (79-100) Mean Corpuscular Hemoglobin 28 pg (25-35) Mean Corpuscular Hemoglobin Concent 32 g/dL (31-37) Red Cell Distribution Width 14.5 % (11.5-14.5) Platelet Count 310 x10^3/uL (140-400) Neutrophils (%) (Auto) 70 % (31-73) Lymphocytes (%) (Auto) 18 % (24-48) Monocytes (%) (Auto) 10 % (0-9) Eosinophils (%) (Auto) 1 % (0-3) Basophils (%) (Auto) 1 % (0-3) Neutrophils # (Auto) 9.1 x10^3/uL (1.8-7.7) Lymphocytes # (Auto) 2.3 x10^3/uL (1.0-4.8) Monocytes # (Auto) 1.3 x10^3/uL (0.0-1.1) Eosinophils # (Auto) 0.2 x10^3/uL (0.0-0.7) Basophils # (Auto) 0.1 x10^3/uL (0.0-0.2) Sodium Level 141 mmol/L (136-145) Potassium Level 3.4 mmol/L (3.5-5.1) Chloride Level 103 mmol/L (98-107) Carbon Dioxide Level 31 mmol/L (21-32) Anion Gap 7 (6-14) Blood Urea Nitrogen 14 mg/dL (8-26) Creatinine 1.0 mg/dL (0.7-1.3) Estimated GFR (Cockcroft-Gault) 91.0 BUN/Creatinine Ratio 14 (6-20) Glucose Level 93 mg/dL (70-99) Calcium Level 8.2 mg/dL (8.5-10.1) Total Bilirubin 0.3 mg/dL (0.2-1.0) Aspartate Amino Transf (AST/SGOT) 19 U/L (15-37) Alanine Aminotransferase (ALT/SGPT) 39 U/L (16-63) Alkaline Phosphatase 63 U/L (46-116) Total Protein 6.9 g/dL (6.4-8.2) Albumin 2.4 g/dL (3.4-5.0) Albumin/Globulin Ratio 0.5 (1.0-1.7) Laboratory Tests Test 12/13/21 03:30 12/13/21 04:30 Urine Collection Type Unknown Urine Color (Auto) Light yellow Urine Turbidity Clear Urine pH (Auto) 6.0 (<5.0-8.0) Urine Specific [place] 1.019 (1.000-1.030) Urine Protein (Auto) Negative mg/dL (Negative) Urine Glucose (Auto)(UA) Negative mg/dL (Negative) Urine Ketones (Auto) Negative mg/dL (Negative) Urine Blood (Auto) Negative (Negative) Urine Nitrite Negative (Negative) Urine Bilirubin (Auto) Negative (Negative) Urine Urobilinogen (Auto) Normal mg/dL (Normal) Urine Leukocyte Esterase (Auto) Negative (Negative) Urine RBC Rare /HPF (0-2) Urine WBC 1-4 /HPF (0-4) Urine Squamous Epithelial Cells Few /LPF Urine Amorphous Sediment Present /HPF Urine Bacteria 0 /HPF (0-FEW) Urine Mucus Slight /LPF White Blood Count 12.9 x10^3/uL (4.0-11.0) Red Blood Count 4.53 x10^6/uL (4.30-5.70) Hemoglobin 12.9 g/dL (13.0-17.5) Hematocrit 40.3 % (39.0-53.0) Mean Corpuscular Volume 89 fL (79-100) Mean Corpuscular Hemoglobin 28 pg (25-35) Mean Corpuscular Hemoglobin Concent 32 g/dL (31-37) Red Cell Distribution Width 14.5 % (11.5-14.5) Platelet Count 310 x10^3/uL (140-400) Neutrophils (%) (Auto) 70 % (31-73) Lymphocytes (%) (Auto) 18 % (24-48) Monocytes (%) (Auto) 10 % (0-9) Eosinophils (%) (Auto) 1 % (0-3) Basophils (%) (Auto) 1 % (0-3) Neutrophils # (Auto) 9.1 x10^3/uL (1.8-7.7) Lymphocytes # (Auto) 2.3 x10^3/uL (1.0-4.8) Monocytes # (Auto) 1.3 x10^3/uL (0.0-1.1) Eosinophils # (Auto) 0.2 x10^3/uL (0.0-0.7) Basophils # (Auto) 0.1 x10^3/uL (0.0-0.2) Sodium Level 141 mmol/L (136-145) Potassium Level 3.4 mmol/L (3.5-5.1) Chloride Level 103 mmol/L (98-107) Carbon Dioxide Level 31 mmol/L (21-32) Anion Gap 7 (6-14) Blood Urea Nitrogen 14 mg/dL (8-26) Creatinine 1.0 mg/dL (0.7-1.3) Estimated GFR (Cockcroft-Gault) 91.0 BUN/Creatinine Ratio 14 (6-20) Glucose Level 93 mg/dL (70-99) Calcium Level 8.2 mg/dL (8.5-10.1) Total Bilirubin 0.3 mg/dL (0.2-1.0) Aspartate Amino Transf (AST/SGOT) 19 U/L (15-37) Alanine Aminotransferase (ALT/SGPT) 39 U/L (16-63) Alkaline Phosphatase 63 U/L (46-116) Total Protein 6.9 g/dL (6.4-8.2) Albumin 2.4 g/dL (3.4-5.0) Albumin/Globulin Ratio 0.5 (1.0-1.7) Problem List s/p singh lab stable [place] to [place] home with oral abx, drain FU next week for drain removal Justicifation of Admission Dx: Justifications for Admission: Justification of Admission Dx: Yes JAELYN BEATTY APRN Dec 13, 2021 08:54
[2021-12-13] MEDS ORDERED: AMOX1TAB11 PO (08:58)
[2021-12-13] MEDS ORDERED: OXYC1TAB15 PO (08:58)
[2021-12-13 11:00] VITALS: BP 111/62
--- NOTE | 2021-12-13 12:04 | PDOC3 ---
Discharge Summary Visit Information Date of Admission: Dec 10, 2021 Date of Discharge: Dec 13, 2021 Final Diagnosis acute necrotic singh s/p lap singh on admit sepsis on admit Brief Hospital Course Allergies Allergies Coded Allergies Type Severity Reaction Last Updated Verified No Known Drug Allergies 12/10/21 No Vital Signs Vital Signs Date Time Temp Pulse Resp B/P (MAP) Pulse Ox O2 Delivery O2 Flow Rate FiO2 12/13/21 08:22 Room Air 12/13/21 07:00 98.6 69 20 111/66 (81) 91 98.6 Lab Results Laboratory Tests Test 12/13/21 03:30 12/13/21 04:30 Urine Collection Type Unknown Urine Color (Auto) Light yellow Urine Turbidity Clear Urine pH (Auto) 6.0 (<5.0-8.0) Urine Specific [place] 1.019 (1.000-1.030) Urine Protein (Auto) Negative mg/dL (Negative) Urine Glucose (Auto)(UA) Negative mg/dL (Negative) Urine Ketones (Auto) Negative mg/dL (Negative) Urine Blood (Auto) Negative (Negative) Urine Nitrite Negative (Negative) Urine Bilirubin (Auto) Negative (Negative) Urine Urobilinogen (Auto) Normal mg/dL (Normal) Urine Leukocyte Esterase (Auto) Negative (Negative) Urine RBC Rare /HPF (0-2) Urine WBC 1-4 /HPF (0-4) Urine Squamous Epithelial Cells Few /LPF Urine Amorphous Sediment Present /HPF Urine Bacteria 0 /HPF (0-FEW) Urine Mucus Slight /LPF White Blood Count 12.9 x10^3/uL (4.0-11.0) Red Blood Count 4.53 x10^6/uL (4.30-5.70) Hemoglobin 12.9 g/dL (13.0-17.5) Hematocrit 40.3 % (39.0-53.0) Mean Corpuscular Volume 89 fL (79-100) Mean Corpuscular Hemoglobin 28 pg (25-35) Mean Corpuscular Hemoglobin Concent 32 g/dL (31-37) Red Cell Distribution Width 14.5 % (11.5-14.5) Platelet Count 310 x10^3/uL (140-400) Neutrophils (%) (Auto) 70 % (31-73) Lymphocytes (%) (Auto) 18 % (24-48) Monocytes (%) (Auto) 10 % (0-9) Eosinophils (%) (Auto) 1 % (0-3) Basophils (%) (Auto) 1 % (0-3) Neutrophils # (Auto) 9.1 x10^3/uL (1.8-7.7) Lymphocytes # (Auto) 2.3 x10^3/uL (1.0-4.8) Monocytes # (Auto) 1.3 x10^3/uL (0.0-1.1) Eosinophils # (Auto) 0.2 x10^3/uL (0.0-0.7) Basophils # (Auto) 0.1 x10^3/uL (0.0-0.2) Sodium Level 141 mmol/L (136-145) Potassium Level 3.4 mmol/L (3.5-5.1) Chloride Level 103 mmol/L (98-107) Carbon Dioxide Level 31 mmol/L (21-32) Anion Gap 7 (6-14) Blood Urea Nitrogen 14 mg/dL (8-26) Creatinine 1.0 mg/dL (0.7-1.3) Estimated GFR (Cockcroft-Gault) 91.0 BUN/Creatinine Ratio 14 (6-20) Glucose Level 93 mg/dL (70-99) Calcium Level 8.2 mg/dL (8.5-10.1) Total Bilirubin 0.3 mg/dL (0.2-1.0) Aspartate Amino Transf (AST/SGOT) 19 U/L (15-37) Alanine Aminotransferase (ALT/SGPT) 39 U/L (16-63) Alkaline Phosphatase 63 U/L (46-116) Total Protein 6.9 g/dL (6.4-8.2) Albumin 2.4 g/dL (3.4-5.0) Albumin/Globulin Ratio 0.5 (1.0-1.7) Laboratory Tests Test 12/13/21 03:30 12/13/21 04:30 Urine Collection Type Unknown Urine Color (Auto) Light yellow Urine Turbidity Clear Urine pH (Auto) 6.0 (<5.0-8.0) Urine Specific [place] 1.019 (1.000-1.030) Urine Protein (Auto) Negative mg/dL (Negative) Urine Glucose (Auto)(UA) Negative mg/dL (Negative) Urine Ketones (Auto) Negative mg/dL (Negative) Urine Blood (Auto) Negative (Negative) Urine Nitrite Negative (Negative) Urine Bilirubin (Auto) Negative (Negative) Urine Urobilinogen (Auto) Normal mg/dL (Normal) Urine Leukocyte Esterase (Auto) Negative (Negative) Urine RBC Rare /HPF (0-2) Urine WBC 1-4 /HPF (0-4) Urine Squamous Epithelial Cells Few /LPF Urine Amorphous Sediment Present /HPF Urine Bacteria 0 /HPF (0-FEW) Urine Mucus Slight /LPF White Blood Count 12.9 x10^3/uL (4.0-11.0) Red Blood Count 4.53 x10^6/uL (4.30-5.70) Hemoglobin 12.9 g/dL (13.0-17.5) Hematocrit 40.3 % (39.0-53.0) Mean Corpuscular Volume 89 fL (79-100) Mean Corpuscular Hemoglobin 28 pg (25-35) Mean Corpuscular Hemoglobin Concent 32 g/dL (31-37) Red Cell Distribution Width 14.5 % (11.5-14.5) Platelet Count 310 x10^3/uL (140-400) Neutrophils (%) (Auto) 70 % (31-73) Lymphocytes (%) (Auto) 18 % (24-48) Monocytes (%) (Auto) 10 % (0-9) Eosinophils (%) (Auto) 1 % (0-3) Basophils (%) (Auto) 1 % (0-3) Neutrophils # (Auto) 9.1 x10^3/uL (1.8-7.7) Lymphocytes # (Auto) 2.3 x10^3/uL (1.0-4.8) Monocytes # (Auto) 1.3 x10^3/uL (0.0-1.1) Eosinophils # (Auto) 0.2 x10^3/uL (0.0-0.7) Basophils # (Auto) 0.1 x10^3/uL (0.0-0.2) Sodium Level 141 mmol/L (136-145) Potassium Level 3.4 mmol/L (3.5-5.1) Chloride Level 103 mmol/L (98-107) Carbon Dioxide Level 31 mmol/L (21-32) Anion Gap 7 (6-14) Blood Urea Nitrogen 14 mg/dL (8-26) Creatinine 1.0 mg/dL (0.7-1.3) Estimated GFR (Cockcroft-Gault) 91.0 BUN/Creatinine Ratio 14 (6-20) Glucose Level 93 mg/dL (70-99) Calcium Level 8.2 mg/dL (8.5-10.1) Total Bilirubin 0.3 mg/dL (0.2-1.0) Aspartate Amino Transf (AST/SGOT) 19 U/L (15-37) Alanine Aminotransferase (ALT/SGPT) 39 U/L (16-63) Alkaline Phosphatase 63 U/L (46-116) Total Protein 6.9 g/dL (6.4-8.2) Albumin 2.4 g/dL (3.4-5.0) Albumin/Globulin Ratio 0.5 (1.0-1.7) Brief Hospital Course Mr. Velazquez is a 66 old male admit with nausea and acute abd pain, fever, tachycardia, leukocytosis, sepsis, IV abx Lap singh done felt much ebtter, K 3.4 on day of DC, hypokalemia, replaced PO Discharge Information Condition at Discharge: Improved Follow Up: Weeks Disposition/Orders: D/C to Home Scheduled Naproxen Sodium (Aleve) 220 Mg Tablet, 440 MG PO DAILY for back pain, (Reported) Entered as Reported by: JIM AMARAL on 12/10/21740 Last Action: New Order on 12/10/21740 by JIM AMARAL Scheduled PRN Oxycodone/Apap 5-325 (Percocet 5-325 Mg Tablet ) 1 Each Tablet, 1 TAB PO PRN Q4HRS PRN for MODERATE PAIN, #20 Ref 0 Prescribed by: Katheryn Black on 12/13/21 0858 Patient Instructions Patient Instructions f/u gen surg for drain removal fce to face done Justicifation of Admission Dx: Justifications for Admission: Justification of Admission Dx: Yes ALLISON SUAREZ MD Dec 13, 2021 12:04
[2021-12-13] MEDS ORDERED: POTASSIUM CHLORIDE 20 MEQ TABLET.ER. PO ONE (12:15)
--- NOTE | 2021-12-13 13:58 | NUR ---
SW following. Discussed with RN, discharge order for home with self care. RN advised no SW needs at this time.
--- NOTE | 2021-12-13 14:40 | NUR ---
Discharge instructions given. Answered questions or concerns. Verbalized understanding. Discharged home accompanied by spouse. Escorted out by w/c.
== END 2021-12-13 14:40 | disposition home or self-care (01) | DRG 854 ==
LOC: ER 03:20 → ED HOLD 04:27 → 4 NORTH 08:36
PROVIDERS: ADMIT Internal Medicine; ATTEND Internal Medicine
PROC: BF502Z0 Other Imaging of Bile Ducts using Fluorescing Agent, Intraoperative (ICD-10-PCS; 2021-12-11)
PROC: 0FT44ZZ Resection of Gallbladder, Percutaneous Endoscopic Approach (ICD-10-PCS; principal; 2021-12-11 12:30)
DX: A41.9 Sepsis, unspecified organism (principal); J98.11 Atelectasis; K80.12 Calculus of gallbladder with acute and chronic cholecystitis without obstruction; E87.6 Hypokalemia; J43.9 Emphysema, unspecified; Z82.49 Family history of ischemic heart disease and other diseases of the circulatory system; Z87.891 Personal history of nicotine dependence; M19.90 Unspecified osteoarthritis, unspecified site; Z20.822 Contact with and (suspected) exposure to COVID-19
CPT/HCPCS: 36415; 71045; 71275; 76705; 80053; 81001; 83690; 83735; 83880; 84484; 85007; 85025; 85379; 87426; 88304; 93005; 96365; 96367; 96368; A4657; A4930; J1100; J2250; J2270; J2370; J2405; J2543; J2704; J2710; J3010; J3490; J7030; J7042; J7120; Q9967; 99285-25; G0378